=== PATIENT | male | born 1960 | race Hispanic/Latino ===

== ENCOUNTER 2019-07-31 08:44 | Emergency (ER) | payer BC ==
[2019-07-31] MEDS ORDERED: dexAMETHasone 20 MG/5 ML VIAL IM ONE (13:42)
[2019-07-31] MEDS ORDERED: KETOROLAC 30 MG/1 ML INJ IM ONE (13:42)
--- NOTE | 2019-07-31 13:43 | Emergency Department Report ---
ED Back Pain/Injury HPI - General Chief Complaint: Back Pain/Injury Stated Complaint: LOWER BACK PAIN Time Seen by Provider: 07/31/19 12:15 Source: patient Mode of arrival: Ambulatory Limitations: No Limitations - History of Present Illness Initial Comments: Is is a 58-year-old male who presents to the emergency room with low back pain radiating to left leg. Patient states he was working in his attic yesterday and woke up this morning with low back pain. Patient reports pain currently as 9 out of 10 on pain scale and burning radiating intensity to left leg. Patient reports pain is worse with walking. He reports nausea with associated symptoms. Patient states when he tried to get out of his work truck this morning he felt nauseous for about 5 minutes and it intensified with movement. Patient reports similar symptoms in the past. Denies recent injury, change in urinary or bowel pattern, dysuria, weakness, bruising, or swelling. MD Complaint: back pain -: This morning Similar Symptoms Previously: Yes Place: home Radiation: left leg Severity: moderate Severity scale (0 -10): 7 Quality: burning, aching Consistency: intermittent Improves With: none Worsens With: movement, walking Associated Symptoms: nausea/vomiting. denies: numbness, difficulty urinating, incontinence, fever/chills - Related Data Previous Rx's Medication Instructions Recorded Last Taken Type Ibuprofen [Motrin 800 MG tab] 800 mg PO Q8HR PRN #20 tablet 07/31/19 Unknown Rx Methocarbamol [Robaxin] 500 mg PO BID PRN #15 tablet 07/31/19 Unknown Rx methylPREDNISolone [Medrol 4MG 4 mg PO DAILY #1 tab.ds.pk 07/31/19 Unknown Rx DOSEPAK (21 tabs)] traMADoL [Ultram 50 MG tab] 50 mg PO Q6HR PRN #12 tablet 07/31/19 Unknown Rx Allergies Allergy/AdvReac Type Severity Reaction Status Date / Time No Known Allergies Allergy Unverified 07/31/19 09:09 ED Review of Systems ROS: Stated complaint: LOWER BACK PAIN Other details as noted in HPI Constitutional: denies: chills, fever Respiratory: denies: cough, shortness of breath, wheezing Cardiovascular: denies: chest pain, palpitations Gastrointestinal: denies: abdominal pain, nausea, diarrhea Musculoskeletal: back pain. denies: joint swelling, arthralgia Skin: denies: rash, lesions Neurological: denies: headache, weakness, paresthesias Psychiatric: denies: anxiety, depression ED Back Pain Physical Exam - Exam General: Vital signs noted. No distress. Alert and acting appropriately. Back/Abdomen: Yes Sacroiliac Tenderness (TTP on left, FROM, no midline tenderness, no deformity, no step-off), Yes Flank Tenderness, Yes Straight Leg Raise Pain (left leg), No Abdominal Tenderness, No Perithoracic Tenderness, No Perilumbar Tenderness Neuro: Yes Normal Sensation, Yes Normal DTR's, Yes Normal Gait, No Motor Weakness ED Medical Decision Making - Medical Decision Making This is a 58-year-old male who presents with low back pain radiating to left leg. Vitals are stable inpatient in no acute distress. There is tenderness to palpation on left sacroiliac, no midline tenderness, no step-off, no deformity, full range of motion. Given exam and history, low suspicion for cord compression, cauda equina, epidural abscess/hematoma. Distally neurovascuarly intact. Imaging and labs deferred at this time. Start steroids, muscle relaxers, and analgesics. Physical therapy and follow up with PMD. Return precautions discussed w/full understanding Critical care attestation.: If time is entered above; I have spent that time in minutes in the direct care of this critically ill patient, excluding procedure time. ED Disposition Clinical Impression: Sciatica of left side Lumbago with sciatica, left side Qualifiers: Chronicity: acute Back pain laterality: left Qualified Code(s): M54.42 - Lumbago with sciatica, left side Disposition: TO HOME OR SELFCARE Is pt being admited?: No Condition: Stable Instructions: Lumbar Radiculopathy (ED), Sciatica (ED) Additional Instructions: Rest Use ice or heat on affected area for 20 minutes and off for 2 hours. Take pain medication as needed for pain. Don't operate heavy machinery or drive while taking muscle relaxers. Follow up with Primary Care Provider in 2-3 days. Prescriptions: methylPREDNISolone [Medrol 4MG DOSEPAK (21 tabs)] 4 mg PO DAILY #1 tab.ds.pk Ibuprofen [Motrin 800 MG tab] 800 mg PO Q8HR PRN #20 tablet PRN Reason: Pain, Moderate (4-6) Methocarbamol [Robaxin] 500 mg PO BID PRN #15 tablet PRN Reason: Muscle Spasm traMADoL [Ultram 50 MG tab] 50 mg PO Q6HR PRN #12 tablet PRN Reason: Pain Referrals: [facility] [Provider Group] - 3-5 Days ANTONY STILES MD [Staff Physician] - 3-5 Days WASHINGTON SOLIMAN MD [Staff Physician] - 3-5 Days Forms: Work/School Release Form(ED) Time of Disposition: 14:07
[2019-07-31 14:29] VITALS: BP 119/63
== END 2019-07-31 14:29 | disposition home or self-care (01) ==
LOC: ED 08:44
DX: M54.42 Lumbago with sciatica, left side (principal)
CPT/HCPCS: 96372; 99282; J1100; J1885